=== PATIENT | male | born 1980 | race African-American/Black ===

== ENCOUNTER 2018-10-25 15:55 | Emergency (ER) | payer MEDICAID ==
[~2018-10-25] VITALS: Ht 170.2 cm; Wt 71.7 kg
--- NOTE | 2018-10-25 17:16 | NUR ---
Patient discharged to home in stable conditon. Written and verbal after care instructions given. Patient verbalizes understanding of instructions.pt walks in steady gait.
== END 2018-10-25 17:17 | disposition home or self-care (01) ==
LOC: ER 15:58
DX: M54.5 Low back pain (principal); Z88.0 Allergy status to penicillin; X50.1XXA Overexertion from prolonged static or awkward postures, initial encounter; Y93.89 Activity, other specified; Y92.89 Other specified places as the place of occurrence of the external cause; Y99.8 Other external cause status
CPT/HCPCS: 72110; A4663